=== PATIENT | male | born 1970 | race Caucasian/White ===

== ENCOUNTER 2020-04-25 21:31 | Emergency (ER) | payer OTHER ==
[~2020-04-25] VITALS: Ht 177.8 cm; Wt 85.7 kg
[~2020-04-25 21:31] MED LIST: ANTIVERT25 M1 PO; SYNTHROID50 MCG
[2020-04-26] MEDS ORDERED: IBU800 MG PO (01:03)
[2020-04-26] MEDS ORDERED: ORPHENADRINE C100 MG PO (01:03)
== END 2020-04-26 01:55 ==
LOC: ER 21:31
DX: M94.0 Chondrocostal junction syndrome [Tietze] (principal); R07.89 Other chest pain

== ENCOUNTER 2021-10-03 22:23 | Emergency (ER) | payer OTHER ==
[~2021-10-03] VITALS: Ht 180.3 cm; Wt 85.7 kg
[~2021-10-03 22:23] MED LIST changes: +IBU800 MG PO; +ORPHENADRINE C100 MG PO
[2021-10-03] MEDS ORDERED: ZESTRIL5 MG PO (22:36)
[2021-10-04] MEDS ORDERED: AZITHROMYCIN500 MG PO (00:53)
[2021-10-04] MEDS ORDERED: MEDROL4 MG PO (00:53)
[2021-10-04] MEDS ORDERED: LEVALBUTER1.25 MG/3 IH (00:53)
[2021-10-04] MEDS ORDERED: MUCINEX DM ER1 EAC1 PO (00:53)
== END 2021-10-04 00:59 | disposition home or self-care (01) ==
LOC: ER 22:23
DX: R07.89 Other chest pain (principal); J40 Bronchitis, not specified as acute or chronic

== ENCOUNTER 2022-01-04 10:34 | Emergency (ER) | payer OTHER ==
[~2022-01-04] VITALS: Ht 180.3 cm; Wt 84.8 kg
[~2022-01-04 10:34] MED LIST changes: +AZITHROMYCIN500 MG PO; +LEVALBUTER1.25 MG/3 IH; +MEDROL4 MG PO; +MUCINEX DM ER1 EAC1 PO; +ZESTRIL5 MG PO
[2022-01-04] MEDS ORDERED: ZITHROMAX500 MG PO (13:43)
[2022-01-04] MEDS ORDERED: TUSSI PRES-B L480 ML PO (13:45)
== END 2022-01-04 13:50 | disposition home or self-care (01) ==
LOC: ER 10:34
DX: B34.9 Viral infection, unspecified (principal)

== ENCOUNTER 2023-04-29 04:56 | Emergency (ER) | payer OTHER ==
[~2023-04-29] VITALS: Ht 180.3 cm; Wt 87.1 kg
[~2023-04-29 04:56] MED LIST changes: +TUSSI PRES-B L480 ML PO; +ZITHROMAX500 MG PO
== END 2023-04-29 10:50 | disposition home or self-care (01) ==
LOC: ER 04:56
PROVIDERS: Emergency Medicine
DX: B34.8 Other viral infections of unspecified site (principal); J20.9 Acute bronchitis, unspecified; Z20.822 Contact with and (suspected) exposure to COVID-19

== ENCOUNTER 2024-12-04 10:53 | Emergency (ER) | payer OTHER ==
[~2024-12-04] VITALS: Ht 177.8 cm; Wt 87.1 kg
[2024-12-04] MEDS ORDERED: KETOROLAC TROMETHAMINE 60 MG VIAL IM STA (11:54)
[2024-12-04] MEDS ORDERED: KETOROLAC TROMETHAMINE 60 MG VIAL IM ONE (12:00)
[2024-12-04] MEDS ORDERED: ORPHENADRINE CITRATE 30 MG/ML AMPUL ONE (12:00)
[2024-12-04] MEDS ORDERED: ORPHENADRINE CITRATE 30 MG/ML AMPUL IM SCH (12:00)
[2024-12-04 12:28] LABS: PH,URINE 5.5 (5.0-8.0); URINE APPEARANCE Clear; URINE BILIRRUBIN Negative (NEGATIVE); URINE BLOOD Negative; URINE COLOR Yellow; URINE GLUCOSE Negative (NEGATIVE); URINE KETONE Negative (NEGATIVE); URINE LEUKOCYTE Negative; URINE NITRATE Negative; URINE PROTEIN Negative (NEGATIVE); URINE UROBILINOGEN 0.2 E.U./dl
[2024-12-04 12:29] LABS: URINE BACTERIA 6.1 uL (0.0-1933); URINE EPITHELIAL CELLS 1.5 uL (0.0-38.8); URINE WBC 1.8 uL (0.0-23.2)
[2024-12-04 13:11] LABS: URINE CAST 0.14 uL (0.0-1.40); URINE RBC 1.1 uL (0.0-20.8)
== END 2024-12-04 13:50 | disposition home or self-care (01) ==
LOC: ER 10:54
PROVIDERS: General Practice
DX: M54.50 Low back pain, unspecified (principal); E03.8 Other specified hypothyroidism; I10 Essential (primary) hypertension